=== PATIENT | female | born 1950 | race Caucasian/White ===

== ENCOUNTER 2019-01-21 18:50 | Observation (INO) | payer MEDICARE ==
--- NOTE | 2019-01-21 20:38 | ED ---
Upper Extremity Pain - HPI Summary HPI Summary: 68 yo female presents via EMS with left shoulder pain s/p fall. She tells me that she was walking in [email or web address] and slipped, landing on her left shoulder. Noted deformity and severe pain. EMS was called and brought her to ED. Did not hit her head or have LOC. She has a history of COPD, CAD/Angina for which she takes nitro prn, chronic pain due to RA for which she takes 60mg of morphine TID, and HTN. Denies numbness or tingling. - History of Current Complaint Chief Complaint: EDExtremityUpper Stated Complaint: LT SHOULDER PAIN PER EMS Time Seen by Provider: 01/21/19 20:38 Hx Obtained From: Patient Severity Initially: Severe Severity Currently: Severe - Allergies/Home Medications Allergies/Adverse Reactions: Allergies Allergy/AdvReac Type Severity Reaction Status Date / Time No Known Allergies Allergy Verified 01/21/19 18:55 PMH/Surg Hx/FS Hx/Imm Hx Cardiovascular History: Reports: Hx Hypertension Respiratory History: Reports: Hx Chronic Obstructive Pulmonary Disease (COPD) Denies: Hx Asthma Musculoskeletal History: Reports: Hx Arthritis, Hx Rheumatoid Arthritis Denies: Hx Osteoporosis - Cancer History Hx Chemotherapy: Yes - METHOTREXATE,ARTHIRITS,HX RA Hx Radiation Therapy: No Infectious Disease History: No Infectious Disease History: Denies: Traveled Outside the [place] in Last 30 Days - Family History Known Family History: Positive: Cardiac Disease, Hypertension, Respiratory Disease - Social History Lives: With Family Alcohol Use: None Substance Use Type: Reports: None Smoking Status (MU): Current Every Day Smoker Type: Cigarettes Amount Used/How Often: 5 cigarettes/day Have You Smoked in the Last Year: Yes Review of Systems Constitutional: Negative Cardiovascular: Negative Respiratory: Negative Gastrointestinal: Negative Genitourinary: Negative Musculoskeletal: Other - Left shoulder pain Neurological: Negative Psychological: Normal All Other Systems Reviewed And Are Negative: No Physical Exam - Summary Physical Exam Summary: GENERAL: Mild pain distress. SKIN: No rashes, sores, lesions, or open wounds. CHEST: CTAB. No accessory muscle use. Breathing comfortably and in no distress. CV: RRR. Pulses intact radial and ulnar. Cap refill <2seconds MSK: LEFT SHOULDER: Noted anterior deformity. No ROM due to pain. TTP about entire shoulder. NTTP elbow with FROM. NEURO: Alert. Sensations intact C4-T1 b/l PSYCH: Age appropriate behavior. Triage Information Reviewed: Yes Vital Signs On Initial Exam: Initial Vitals Temp Pulse Resp BP Pulse Ox 97.9 F 84 16 179/96 97 01/21/19 18:51 01/21/19 18:51 01/21/19 18:51 01/21/19 18:51 01/21/19 18:51 Vital Signs Reviewed: Yes Procedures - Sedation Patient Received Moderate/Deep Sedation with Procedure: No Diagnostics - Vital Signs Vital Signs Temp Pulse Resp BP Pulse Ox 01/21/19 18:51 97.9 F 84 16 179/96 97 - Laboratory Lab Results: Laboratory Tests 01/21/19 23:30 Urine Color Rhina Urine Appearance Clear Urine pH 5.0 Ur Specific [place] 1.027 Urine Protein 1+(30 mg/dl) A Urine Ketones Negative Urine Blood 2+ A Urine Nitrate Negative Urine Bilirubin Negative Urine Urobilinogen Negative Ur Leukocyte Esterase Negative Urine WBC (Auto) Absent Urine RBC (Auto) 3+(>10/hpf) A Calcium Oxalate Crystal Present A Urine Bacteria Absent Hyaline Casts Present A Urine Glucose Negative Result Diagrams: 01/21/19 23:44 01/21/19 23:44 Lab Statement: Any lab studies that have been ordered have been reviewed, and results considered in the medical decision making process. - Radiology Shoulder XR Radiology Interpretation Completed By: ED Physician Summary of Radiographic Findings: Anterior dislocation of humerus. Reviewed with Dr. Melvin - EKG 1 EKG Comparison: Other Summary of EKG Findings: Sinus arrhythmia 79bpm. No STEMI as read by Dr. Melvin. Course/Dx - Course Course Of Treatment: Given pt's opioid dependence, she was given 8mg morphine for her pain with mild relief. Reduction was attempted via the chair method by myself and was unsuccessful. I discussed with Dr. Melvin and he gave pt fentanyl and, assisted by myself, attempted traction-conter traction reduction which was also unsuccessful. Given pt's comorbidities, he recommends reduction by Ortho in the OR setting. Discussed this with Dr. Galvez of Orthopedics and he is agreeable to this. Recommends to admit to hospitalist and keep pt npo. Discussed case with Dr. Triana of hospitalist and she agrees to admit the pt. Discussed the above with Dr. Melvin and he is agreeable with the plan of care. failed reduction 1045 - Diagnoses Provider Diagnoses: Anterior dislocation of left humerus - Physician Notifications Discussed Care of Patient With: Milton Galvez - Admit for reduction in the morning. Keep NPO Discharge ED - Sign-Out/Discharge Documenting (check all that apply): Patient Departure - Discharge Plan Condition: Stable Disposition: ADMITTED TO [facility] - Billing Disposition and Condition Condition: STABLE Disposition: Admitted to [facility] - Attestation Statements Provider Attestation: the patient was seen by the midlevel provider, it was determined by them that it was not necessary for me to see the patient, I was available for consult during the patient's visit in the ED. I did not establish and patient-physician relationship. The chart however has been reviewed and I am signing in an administrative capacity.
[2019-01-21] MEDS ORDERED: Morphine 4 MG/ML VIAL (1 ml) 4 MG/ML VIAL IV ONE (20:42)
[2019-01-21] MEDS: NS 0.9% 1000 ML** 1,000 ML IV ONE ×3 (21:12→22:25)
[2019-01-21] MEDS ORDERED: fentaNYL* 50 MCG/ML 2 ML VIAL (100 MCG VIAL) IV SLOW PU ONE (22:15)
[2019-01-21] MEDS ORDERED: NS 0.9% 500 ML* 500 ML IV ONE (22:22)
[2019-01-21] MEDS ORDERED: Metoprolol Succinate XL TAB* 25 MG PO ONE (23:42)
[2019-01-21] MEDS ORDERED: HYDROcodone/ACETAMIN 5-325 MG* 1 TAB PO ONE (23:42)
[2019-01-21 23:46] LABS: Urine Appearance Clear; Urine Bacteria Absent (Absent); Urine Bilirubin Negative (Negative); Urine Blood 2+ (Negative); Urine Color Amber; Urine Glucose Negative (Negative); Urine Ketones Negative (Negative); Urine Nitrite Negative (Negative); Urine Protein 1+(30 mg/dL) (Negative); Urine Red Blood Cell 3+(>10/hpf) (Absent); Urine Specific Gravity 1.027 (1.010-1.030); Urine Urobilinogen Negative (Negative); Urine White Blood Cell Absent (Absent)
[2019-01-21 23:54] LABS: ABS Basophils 0.1 10^3/ul (0-0.2); ABS Lymphocytes 0.8 10^3/ul (1.0-4.8); ABS Monocytes 0.4 10^3/ul (0-0.8); ABS Neutrophils 13.7 10^3/ul (1.5-7.7); Eosinophil % 0.1 %; Hematocrit 43 % (35-47); Hemoglobin 14.6 g/dL (12.0-16.0); Lymphocyte % 5.5 %; Mean Corpuscular HGB Conc 34 g/dL (31-36); Mean Corpuscular Hemoglobin 30 pg (27-31); Mean Corpuscular Volume 90 fL (80-97); Mean Platelet Volume 8.1 fL (7.4-10.4); Platelet Count 225 10^3/uL (150-450); Red Blood Count 4.82 10^6 /uL (3.70-4.87); Red Cell Distribution Width 16 % (10-15)
[2019-01-22 00:01] LABS: INR 1.06 (0.82-1.09)
[2019-01-22 00:08] LABS: Albumin 4.2 g/dL (3.2-5.2); Albumin/Globulin Ratio 1.6 (1-3); BUN/Creatinine Ratio 24.2 (8-20); Calcium 8.6 mg/dL (8.6-10.3); EGFR African American 108.4 (>60); EGFR Non-African American 89.6 (>60); Globulin 2.7 g/dL (2-4); Potassium 3.8 mmol/L (3.5-5.0); Total Bilirubin 0.6 mg/dL (0.2-1.0); Total Protein 6.9 g/dL (6.4-8.9)
[2019-01-22] MEDS ORDERED: Hydrochlorothiazide TAB* 25 MG PO ONE (00:30)
[2019-01-22] MEDS ORDERED: Lisinopril TAB* 10 MG PO ONE (00:30)
[2019-01-22] MEDS ORDERED: fentaNYL* 50 MCG/ML 2 ML VIAL (100 MCG VIAL) IV SLOW PU ONE (01:05)
[2019-01-22] MEDS ORDERED: fentaNYL* 50 MCG/ML 2 ML VIAL (100 MCG VIAL) IV SLOW PU PRN ×3 (01:06→02:38)
[2019-01-22] MEDS ORDERED: Nicotine PATCH 14 MG/24 HR* PATCH TRANSDERM PRN ×2 (01:08→02:38)
[2019-01-22] MEDS ORDERED: Nitroglycerin TAB 0.4 MG* 0.4 MG TAB SL PRN (01:08)
[2019-01-22] MEDS ORDERED: NS 0.9% 1000 ML** 1,000 ML IV SCH (01:15)
[2019-01-22] MEDS ORDERED: HYDROcodone/ACETAMIN 5-325 MG* 1 TAB PO PRN (01:26)
[2019-01-22] MEDS ORDERED: HYDROmorphone INJ* 0.5 MG/0.5 ML SYRINGE IV SLOW PU ONE (02:38)
--- NOTE | 2019-01-22 03:45 | HP ---
CC: Dr. Mason * HISTORY AND PHYSICAL: DATE OF ADMISSION: 01/22/19 PRIMARY CARE PROVIDER: Dr. Mason. SYSTEMS TEST ANALYST: Ivon Jesus NP. PLANER OPERATOR: Dr. Jalloh. CHIEF COMPLAINT: Left shoulder dislocation. HISTORY OF PRESENT ILLNESS: Ms. Sapp is a 68-year-old female who has a history of advanced rheumatoid arthritis, coronary artery disease, hypertension , and hyperlipidemia, who had completed her yoga class and was at the grocery store, going for [employer], when she slipped on the floor. She fell landing on her left arm. She had immediate pain in the left shoulder. She presented to the emergency room for evaluation. In addition to the pain in the shoulder, she does note that her fingers have been tingling off and on. She states that this event occurred around 1730. Other than this episode, she has generally been in her usual state of health. She did develop a cold approximately 1 week ago and has had an intermittent cough with occasional clear sputum production. She otherwise denies fevers, chills or shortness of breath. She has had no recent chest pain. She does state that she is chronically constipated. PAST MEDICAL HISTORY: 1. Coronary artery disease. 2. Osteoporosis. 3. Osteomyelitis. 4. Hypertension. 5. RA. 6. History of rheumatic fever as a child. PAST SURGICAL HISTORY: 1. Left finger surgery. 2. Left foot surgery x2. 3. Bilateral wrist surgery. 4. Tonsillectomy. 6. Tubal ligation. MEDICATIONS: 1. Calcium/magnesium 1 tab p.o. daily p.r.n. indigestion. 2. [place] 10/325, one to two tablets p.o. q.6 hours p.r.n. pain. 3. Methotrexate 6 tablets p.o. weekly. 4. Yin Chiao tablet, 1 tab p.o. t.i.d. p.r.n. 5. Aspirin 81 mg p.o. daily. 6. Folic acid 1 mg p.o. daily. 7. Lisinopril/hydrochlorothiazide 20/12.5 one-half tab p.o. q.h.s. 8. Metoprolol XL 25 mg p.o. q.h.s. 9. MS Contin 60 mg p.o. t.i.d. 10. Multivitamin 1 tab p.o. daily. 11. Nicotine patch 14 mg topically daily. 12. Nitroglycerin 0.4 mg sublingual q.5 minutes p.r.n. chest pain. ALLERGIES: No known drug allergies. FAMILY HISTORY: Dad at the age of 69 of septicemia. He had also a history of CHF and hypertension. Mom at 80, she had Alzheimer's and hypertension. SOCIAL HISTORY: The patient currently smokes 5 to 10 cigarettes per day, but has smoked up to 1 pack per day and has smoked for 40 years. Denies any alcohol use. She previously worked as an film editor. She is . She has 1 child. She indicates that her or her son will be her healthcare proxy. REVIEW OF SYSTEMS: A complete 11-system review of systems was obtained. Pertinent positives and negatives are as per HPI and are otherwise negative. PHYSICAL EXAMINATION GENERAL: The patient is a well-developed, middle-aged female, seen sitting up on the edge of the bed, initially moaning, complaining of pain when I entered the room. VITAL SIGNS: Blood pressure 129/86, pulse 86, respirations 15, temp 97.9, O2 sat 97% on room air. HEENT: Pupils are equal and round. Extraocular muscles are intact. Oropharynx is clear. Oral mucosa is moist. NECK: There is no submandibular, cervical or supraclavicular adenopathy. PULMONARY: Breath sounds are markedly diminished throughout. CARDIAC: Normal S1 and S2. Regular rate and rhythm. I do not appreciate any murmurs. ABDOMEN: Bowel sounds are present. Abdomen is soft, nontender, nondistended. MUSCULOSKELETAL: The patient has obvious advanced RA joint deformities. I did not manipulate her left upper extremity. She moves her legs and right upper extremity without difficulty. NEUROLOGIC: Strength appears normal in the right upper extremity and bilateral lower extremities. Sensation is intact to light touch throughout. SKIN: Visible areas of skin are warm, dry, and without rash. PSYCH: The patient is alert. She is oriented x3. Affect appears appropriate. DIAGNOSTIC STUDIES/LAB DATA: WBC 15, hemoglobin 14.6, hematocrit 43, platelets 225. INR 1.06. Sodium 138, potassium 3.8, chloride 110, CO2 of 22, BUN 16, creatinine 0.66, glucose 123, calcium 8.6, bilirubin 0.6. AST 21, ALT 26, alkaline phosphatase 39, albumin 4.2. Urinalysis reveals a specific gravity of 1.027, 1+ protein, 2+ blood, 3+ rbc's, positive for hyaline casts, absent bacteria. EKG reveals normal sinus rhythm, without any acute ST-T wave abnormalities. Shoulder x- ray reveals left shoulder dislocation. ASSESSMENT AND PLAN: Ms. Sapp is a 68-year-old female who has advanced rheumatoid arthritis, coronary artery disease, hypertension, and hyperlipidemia , who presents to the emergency room after sustaining a mechanical fall, landing on her left arm, and sustaining a left shoulder dislocation. 1. Left shoulder dislocation: An attempt x2 was made in the emergency room to reduce the shoulder. Unfortunately, this was unsuccessful. The patient will be admitted under observation status with plans to go to the operating room in the morning with Dr. Galvez for reduction. The patient's pain will be controlled with fentanyl in addition to her standing MS Contin. I will also have p.r.n. [place] for moderate pain. For conscious sedation, the patient is acceptable risk to go to the operating room. She does have a history of coronary artery disease; however, has been chest pain free with activity recently. She underwent stress testing in August 2018. This did reveal a small reversible defect in the anterior wall. The patient reports being told that this was unchanged from 5 years ago, though the last stress test I see, outside of the one obtained in August 2018, is from October 2009, at that point did not have any reversible or fixed defects. The patient will otherwise be continued on her aspirin, metoprolol XL, and lisinopril. 2. Tobacco abuse: The patient will continue on nicotine patch 14 mg topically daily. 3. Hypertension: At this point, the patient's blood pressure at times has been markedly elevated. I suspect this is secondary to pain. She will continue on her usual home medication regimen. We will try to get control of her pain. 4. Rheumatoid arthritis: The patient's methotrexate will be held while she is hospitalized. As above, she will continue on her MS Contin 60 mg p.o. t.i.d. and p.r.n. [place]. 5. DVT prophylaxis: According to the Adult Thrombosis Prophylaxis Risk Factor Assessment Guide, the patient has a total risk factor score of 3, making her high risk. Ambulation will be utilized as DVT prophylaxis in anticipation of the patient going to the operating room. 6. Code status is full. TIME SPENT: Fifty-five minutes were spent admitting this patient. [id number]/CPS #: [id number] MAHAMED
[2019-01-22] MEDS ORDERED: Midazolam* 1 MG/ML 5 ML VIAL (5 MG) ONE (07:06)
[2019-01-22] MEDS ORDERED: fentaNYL* 50 MCG/ML 2 ML VIAL (100 MCG VIAL) ONE (07:12)
[2019-01-22] MEDS ORDERED: Propofol* 10 MG/ML 20 ML BTL ONE (07:22)
[2019-01-22] MEDS ORDERED: Vitamin THERAPEUTIC TAB PO SCH (09:00)
[2019-01-22] MEDS ORDERED: Folic Acid TAB* 1 MG PO SCH (09:00)
[2019-01-22] MEDS ORDERED: Nicotine PATCH 14 MG/24 HR* PATCH TRANSDERM SCH (09:00)
[2019-01-22] MEDS ORDERED: Aspirin EC TAB* 81 MG TAB.EC PO SCH (09:00)
[2019-01-22] MEDS: Morphine TAB Extended Release (*) 30 MG TAB.ER PO SCH ×2 (09:58→14:22)
--- NOTE | 2019-01-22 13:46 | OP ---
Operative Report - Blank - Operative Report Date of Operation: 01/22/19 Note: PATIENT: Manjula Sapp DATE OF : 1950 DATE OF SURGERY: 01/22/2019 SURGEON: Kirill Jacobs MD STRATEGIC PLANNING MANAGER: None ANESTHESIOLOGIST: Dr. Michel PREOPERATIVE DIAGNOSIS: Closed left shoulder glenohumeral joint dislocation POSTOPERATIVE DIAGNOSIS: Closed left shoulder glenohumeral joint dislocation OPERATION: Left shoulder glenohumeral joint closed reduction ANESTHESIA: MAC IMPLANTS: none TOURNIQUET TIME: None SPECIMENS: none ESTIMATED BLOOD LOSS: minimal COMPLICATIONS: none STATUS: Stable from the operating room to the recovery room. INDICATIONS FOR PROCEDURE: Manjula sustained a left shoulder GH joint dislocation. Both operative and non- operative treatment alternatives were reviewed. Further, the nature and risks of surgery were reviewed in careful detail. DESCRIPTION OF PROCEDURE: The patient was seen in the preoperative holding unit and informed written consent was obtained. The appropriate extremity was marked. The patient was then brought to the operating room and carefully positioned on the operating room table. Anesthesia was induced. All bony prominences were padded with great care. A surgical safety pause was then conducted in which we confirmed the appropriate patient, extremity, and planned procedure. I began by pulling traction on the left arm. Countertraction was provided. After pulling traction for a while, the joint audibly reduced. I was able to perform full range of motion passively. An x-ray was taken to confirm reduction. A sling and swath was placed. The patient was then awakened from anesthesia and transferred to the recovery room in stable condition. There were no complications. POSTOPERATIVE PLAN: Nonweightbearing in the left upper extremity in the sling. Follow up in clinic in 1-2 weeks.
--- NOTE | 2019-01-22 13:53 | BRIEFOPN ---
Brief Operative/Procedure Note - Operation Details Pre-Op Diagnosis: left shoulder dislocation Post-Op Diagnosis: left shoulder dislocation Procedures: closed left shoulder reduction Surgeon(s)/Proceduralists: nishi Anesthesia: MAC Estimated Blood Loss: none Findings: see op note Specimen(s)/Culture(s) Description: none Complications: none
[2019-01-22 14:48] VITALS: BP 164/68
[2019-01-22] MEDS ORDERED: Lisinopril/HCTZ 20/12.5(NF) TAB PO SCH (18:00)
[2019-01-22] MEDS ORDERED: Metoprolol Succinate XL TAB* 25 MG PO SCH (18:00)
[2019-01-22] MEDS ORDERED: Nicotine Patch Removal NOTE PATCH OFF SCH (21:00)
--- NOTE | 2019-01-22 22:50 | DS ---
CC: Dr. Francisca Mason; Ivon Jesus NP * DISCHARGE SUMMARY: DATE OF ADMISSION: 01/22/19 DATE OF DISCHARGE: 01/22/19 PRIMARY CARE PROVIDER: Dr. Francisca Mason. LACEWORKER: Ivon Jesus NP MY ATTENDING WHILE IN THE HOSPITAL: Dr. Karin Alvarez.* (DICTATED BY EDWARD MCCOY) PRIMARY DISCHARGE DIAGNOSIS: Left shoulder dislocation due to a fall. SECONDARY DISCHARGE DIAGNOSES: 1. Coronary artery disease. 2. Osteoporosis. 3. History of osteomyelitis. 4. Hypertension. 5. Rheumatoid arthritis. 6. History of rheumatic fever. STUDIES DONE WHILE IN THE HOSPITAL: Shoulder x-ray from 01/21/19 read as anterior subcoracoid dislocation of the humerus, bilateral Hill-Sachs fracture. Shoulder x- ray from 01/22/19 read as limited study, reduction of the left shoulder dislocation with Hill-Sachs lesion of the humeral head. MEDICATIONS AT DISCHARGE: 1. Lisinopril/hydrochlorothiazide 20/12.5 tabs p.o. q.p.m. 2. Aspirin 81 mg p.o. daily. 3. Nitroglycerin 0.4 mg sublingual q.5 minutes as needed. 4. Multivitamin 1 tab p.o. daily. 5. Yin Chiao tablet 1 tab p.o. t.i.d. as needed. 6. Percocet 10/325 one to two tabs p.o. q.6 hours as needed. 7. Folic acid 1 mg p.o. daily. 8. Methotrexate 15 mg p.o. weekly. 9. Metoprolol succinate 25 mg p.o. daily. 10. Antacid chew. 11. Calcium carbonate 500mg, 1 tab p.o. daily as needed. 12. Morphine sulfate 6 mg p.o. t.i.d. 13. Nicotine patch 14 mg transdermally daily for tobacco cessation. New medications at discharge: None. Medications discontinued at discharge: None. HOSPITAL COURSE: This is a brief summary of the patient's presentation. For more details, please see the history and physical from Dr. Josefa Triana on . In brief, the patient is a 68-year-old female with past medical history significant for the above, who presented to the emergency department after a mechanical fall where she landed on her left arm and had immediate pain in her left shoulder. She came to the emergency department. She had pain in her shoulder and intermittent tingling in her left arm. She was in her normal state of health. No other concerns. No chest pain. No passing out. No palpitations. No loss of consciousness. The patient was admitted to the hospital due to 2 unsuccessful attempts to reduce the shoulder in the emergency department with the plan for her to have the shoulder reduced under sedation on the morning of 01/22/19. The patient had no complications overnight. The patient was prescribed fentanyl which she did not need, the patient only needed her home dose of morphine and did not need any additional narcotics beyond fentanyl and Dilaudid which was given in the emergency department. The patient was drowsy throughout most of the day, but then woke up and felt as if she was close to normal baseline with moderate pain in her left shoulder, which was well controlled with her pain medications and she was amenable to using only her home pain medications to treat this. The patient was stable medically and discharged on 01/22/19. PHYSICAL EXAM ON THE DAY OF DISCHARGE: General: The patient is a 68-year-old female, who appears stated age and sitting comfortably in bed, in no acute distress. Vital Signs: Temperature 99.7, pulse rate 81, respiratory rate 20, oxygen saturation 92% on room air, blood pressure 164/68. HEENT: Head: Normocephalic, atraumatic. Sclerae anicteric. No conjunctival injection. Nasal mucosa moist. Oral mucosa moist. No pharyngeal erythema, discharge, or exudate. Neck: Supple, nontender. No lymphadenopathy. No carotid bruits auscultated. No JVD. Cardiac: Regular rate and rhythm. No clicks, murmurs, gallops, or rubs. Pulses are 2+ in the bilateral dorsalis pedis, posterior tibialis, and radial areas. No bilateral lower extremity edema noted. Respiratory: Clear to auscultation bilaterally. No wheezes, rales, or rhonchi. Good air exchange bilaterally. Abdomen: Soft, nontender, nondistended. Bowel sounds present and normoactive in all 4 quadrants. No hepatosplenomegaly. No abdominal bruits auscultated. No hepatojugular reflux. Genitourinary: No suprapubic or CVA tenderness. Skin: Chronic erythematous changes around the hands particularly the joints, diffuse bruising. No other rash or ulcer. Musculoskeletal: The patient's left arm is in a sling. Moderate pain with manipulation. Chronic changes in the joints of the hands consistent with rheumatoid arthritis. Neuro: Cranial nerves II through XII intact. Sensation intact distal to the left arm injury. No other focal deficits. Psychiatric: Pleasant and cooperative. DISCHARGE PLAN BY PROBLEM: 1. Left shoulder anterior dislocation. The patient's shoulder has been successfully reduced. The patient has a Hill-Sachs deformity, which has no direct intervention at this time per Orthopedics. The patient should follow up with Orthopedics within 1 week. The patient should have her arm in immobilizer and sling until that time until she was cleared by Orthopedics. The patient will have pain control with her already high dose home pain medication. The patient should follow up with her primary care provider and her orthopedist about need for additional pain control if this is not sufficient for her to tolerate at home. There is no concern that the patient's fall was related to anything other than her slipping and there is no other fracture on x-ray. 2. Rheumatoid arthritis. Continue the patient's pain control with high dose home opiate therapy. The patient should follow up with a pain clinic for this. The patient will be continued on methotrexate and folic acid. The patient should follow up routinely with her plug wirer. 3. Hypertension. Continue the patient's Zestoretic. The patient was hypertensive while in the hospital, but this decreased after her pain was treated. 4. Coronary artery disease. Continue the patient's aspirin, nitroglycerin and the patient should undergo routine monitoring of her lipids. DISPOSITION: Home. CONDITION: Stable. TIME SPENT: Approximately 45 minutes were spent on the discharge of this patient, 30 of which was spent [id number] with the patient obtaining history and physical and discussing treatment plan. EDWARD MCCOY [id number]/LALA #: [id number] MAHAMED
[2019-01-22] MEDS ORDERED: Lisinopril/HCTZ 20/12.5(NF) TAB PO ONE (23:42)
== END 2019-01-22 14:55 | disposition home or self-care (01) ==
LOC: ED 18:50 → SSU 01-22 01:06 → MEDTELE 01-22 03:02
PROVIDERS: ADMIT Hospitalist; ATTEND Internal Medicine
DX: S43.005A Unspecified dislocation of left shoulder joint, initial encounter (principal); W19.XXXA Unspecified fall, initial encounter; Y92.9 Unspecified place or not applicable; I25.10 Atherosclerotic heart disease of native coronary artery without angina pectoris; M81.0 Age-related osteoporosis without current pathological fracture; I10 Essential (primary) hypertension; M06.9 Rheumatoid arthritis, unspecified; Z86.19 Personal history of other infectious and parasitic diseases; Z79.82 Long term (current) use of aspirin; Z79.899 Other long term (current) drug therapy; F17.210 Nicotine dependence, cigarettes, uncomplicated
CPT/HCPCS: 36415; 80053; 81003; 81015; 85025; 85610; 93005; 99285; A9270-GY; G0378; J1170; J2250; J2270; J2704; J3010